=== PATIENT | male | born 1970 | race Caucasian/White ===

== ENCOUNTER → 2021-01-06 20:00 | Outpatient (CLI) | payer OTHER, SELFPAY ==
[2020-12-18 15:47] VITALS: BMI 29.1
== END ==
PROVIDERS: Referring Provider Internal Medicine Cardiovascular Disease; Visit Provider Internal Medicine Cardiovascular Disease
DX: G47.19 Other hypersomnia (principal); R06.83 Snoring; I48.91 Unspecified atrial fibrillation
CPT/HCPCS: 95810

== ENCOUNTER 2021-06-27 08:54 | Outpatient (CLI) | payer OTHER, SELFPAY | END 2021-06-27 23:59 | disposition short-term general hospital (02) | PROVIDERS: Referring Provider Internal Medicine Critical Care Medicine; Visit Provider Internal Medicine Critical Care Medicine | DX: G47.33 Obstructive sleep apnea (adult) (pediatric) (principal) | CPT/HCPCS: 95806 ==